=== PATIENT | female | born 1980 | race American Indian/Alaskan Native ===

== ENCOUNTER 2020-05-10 14:56 | Observation (INO) | payer OTHER, MEDICAID ==
[2020-05-10] MEDS ORDERED: DOCUSATE SODIUM 100 MG CAP PO PRN (15:57)
[2020-05-10] MEDS ORDERED: ACETAMINOPHEN 325 MG TAB PO PRN (15:57)
[2020-05-10] MEDS ORDERED: diphenhydrAMINE 25 MG CAP PO PRN (15:57)
[2020-05-10] MEDS ORDERED: BETAMET ACET/BETAMET NA PH 6 MG/ML INJ 5 ML MDV IM SCH (16:00)
[2020-05-10 16:26] LABS: Bilirubin,Urine NEG (Negative); Blood,Urine NEG (Negative); Color,Urine Yellow (Yellow); Mucus,Urine FEW /HPF; Protein,Urine <15 mg/dL mg/dL (Negative)
--- NOTE | 2020-05-10 17:52 | History and Physical Report ---
History of Present Illness Date of examination: 05/10/20 Date of admission: 05/10/20 15:57 Chief complaint: "My face hurts and is swollen" History of present illness: Pt is a 39 yo at 33w5d EGA who presents reporting facial swelling, frontal headache for the past day not relieved by Tylenol with Codeine, and nausea. She denies scotomata, RUQ pain, or epigastric pain. She reports positive movement and denies contractions, LOF, or vaginal bleeding. She has received care with [facility]'s fitness specialist. 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 She has no history of hypertension. 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) Family/Genetic History: diabetes, hypertension Social history: no significant social history - Obstetrical History Expected Date of Delivery: 06/23/20 Actual Gestation: 33 Week(s) 5 Day(s) : 6 Para: 5 Hx # Term Pregnancies: 5 Number of Living Children: 5 Medications and Allergies Allergies Allergy/AdvReac Type Severity Reaction Status Date / Time No Known Allergies Allergy Verified 05/10/20 15:42 Active Meds: Active Medications Acetaminophen (Acetaminophen 325 Mg Tab) 650 mg PO Q4H PRN PRN Reason: Pain MILD(1-3)/Fever >100.5/FELICIANO Betamethasone Acet/Betameth SodPhos (Betamet Acet/Betamet Na Ph 6 Mg/Ml Inj 5 Ml Mdv) 12 mg IM Q24H DILIA Stop: 05/11/20 16:01 Diphenhydramine HCl (Diphenhydramine 25 Mg Cap) 25 mg PO Q6H PRN PRN Reason: Itching Docusate Sodium (Docusate Sodium 100 Mg Cap) 100 mg PO Q12H PRN PRN Reason: Constipation Lactated Ringer's (Lactated Ringers) 1,000 mls @ 125 mls/hr IV DIRECT DILIA Multivitamins/Iron/Calcium ( Umm80-Dt Fumarate-Folic Acid Vit Tab) 1 each PO QDAY DILIA Review of Systems All systems: negative Cardiovascular: edema (facial) Respiratory: no shortness of breath Gastrointestinal: nausea, no vomiting Genitourinary: no vaginal bleeding, no leakage of fluid, no pelvic pain, no contractions Neurological: headaches, no double vision, no other (scotomata) - Vital Signs Vital signs: Vital Signs Pulse BP 93 H 144/87 05/10/20 15:30 05/10/20 15:30 Temp Pulse Resp BP Pulse Ox 98.5 F 82 20 126/62 97 05/10/20 16:12 05/10/20 17:20 05/10/20 16:12 05/10/20 17:20 05/10/20 16:30 - Physical Exam Uterus: Positive: enlarged (gravid) - Obstetrical FHR: category 1 Uterine Contraction Monitor Mode: External Uterine Contraction Pattern: Absent Results All other labs normal. Assessment and Plan A: 39 yo at 33w5d EGA Gestational hypertension, rule out preeclampsia Headache HSV-2 positive Obesity P: Admit to observation 24 hour urine protein, serum PIH labs Fioricet PRN Betamethasone x2 Closely monitor clinical status Dr. Huggins aware of patient
[2020-05-10] MEDS: BUTALB/ACETAMINOPHEN/CAFFEINE TAB PO PRN (18:59)
--- NOTE | 2020-05-10 22:43 | Event Note ---
Date: 05/10/20 Pt sleeping comfortably. States Fioricet relieved headache to 2/10, but the pain is returning. Continue current care, Fioricet PRN.
[2020-05-10 22:52] LABS: Basophils % (Auto) 0.2 % (0.0-1.8); Eosinophils % (Auto) 0.3 % (0.0-4.3); Hematocrit 33.1 % (30.3-42.9); Hemoglobin 10.9 gm/dl (10.1-14.3); Lymphocytes # (Auto) 0.8 K/mm3 (1.2-5.4); Lymphocytes % (Auto) 8.7 % (13.4-35.0); Mean Corpuscular HGB Conc 33 % (30-34); Mean Corpuscular Volume 86 fl (79-97); Monocytes # (Auto) 0.4 K/mm3 (0.0-0.8); Platelet Count 189 K/mm3 (140-440); Red Blood Count 3.86 M/mm3 (3.65-5.03); Red Cell Distribution Width 14.4 % (13.2-15.2)
[2020-05-10 23:05] LABS: Alanine Aminotransferase 84 units/L (7-56)
[2020-05-10 23:07] LABS: Alanine Aminotransferase 83 units/L (7-56); Albumin 3.1 g/dL (3.9-5); Blood Urea Nitrogen 5 mg/dL (7-17); Calcium 8.6 mg/dL (8.4-10.2); Hemolysis Index 0
[2020-05-10 23:08] LABS: BUN/Creatinine Ratio 8
[2020-05-10] MEDS: LACTATED RINGERS 1,000 ML IV SCH (23:30)
[2020-05-11] MEDS: BUTALB/ACETAMINOPHEN/CAFFEINE TAB PO PRN (06:08)
[2020-05-11] MEDS: LACTATED RINGERS 1,000 ML IV SCH (08:01)
[2020-05-11 10:00] LABS: Hematocrit 31.3 % (30.3-42.9); Mean Corpuscular HGB Conc 35 % (30-34); Mean Corpuscular Volume 84 fl (79-97); Platelet Count 198 K/mm3 (140-440); Red Blood Count 3.73 M/mm3 (3.65-5.03); Red Cell Distribution Width 13.9 % (13.2-15.2)
[2020-05-11] MEDS ORDERED: PRENATAL VIT27-FE FUMARATE-FOLIC ACID VIT TAB PO SCH (10:00)
[2020-05-11] MEDS ORDERED: ONDANSETRON 4 MG/2 ML INJ ONE (10:44)
[2020-05-11] MEDS ORDERED: ONDANSETRON 4 MG/2 ML INJ IV SCH (11:00)
[2020-05-11 11:56] LABS: Alanine Aminotransferase 82 units/L (7-56); Uric Acid 4.7 mg/dL (3.5-7.6)
[2020-05-11] MEDS ORDERED: FAMOTIDINE 20 MG/2 ML INJ IV SCH (16:00)
[2020-05-11] MEDS ORDERED: BICITRA ORAL LIQD 30ML PO ONE (16:00)
--- NOTE | 2020-05-11 18:07 | Progress Note ---
Assessment and Plan A: IUP at 33w6d Mild Preeclampsia Morbid Obesity P: Discharge patient after second dose of betamethasone Follow up in clinic on Thursday05/14/20 Subjective - Subjective Date of service: 05/11/20 Principal diagnosis: IUP at 33 wks, rule out preeclampsia Interval history: Pt without complaints now. No headache, blurred vision or RUQ pain. She has no other obstetric complaints. Patient reports: no new complaints Objective - Vital Signs Vital Signs: Vital Signs - 12hr 05/11/20 05/11/20 05/11/20 06:09 06:14 06:19 Temperature Pulse Rate 73 66 61 Respiratory Rate Blood Pressure Blood Pressure [Right] O2 Sat by Pulse 98 97 97 Oximetry 05/11/20 05/11/20 05/11/20 06:24 06:26 06:29 Temperature Pulse Rate 64 62 84 Respiratory Rate Blood Pressure 119/58 Blood Pressure [Right] O2 Sat by Pulse 98 98 Oximetry 05/11/20 05/11/20 05/11/20 06:39 06:44 06:49 Temperature Pulse Rate 91 H 70 67 Respiratory Rate Blood Pressure Blood Pressure [Right] O2 Sat by Pulse 98 98 98 Oximetry 05/11/20 05/11/20 05/11/20 06:54 06:59 07:04 Temperature Pulse Rate 71 63 65 Respiratory Rate Blood Pressure Blood Pressure [Right] O2 Sat by Pulse 98 98 97 Oximetry 05/11/20 05/11/20 05/11/20 07:09 07:12 07:14 Temperature Pulse Rate 63 64 77 Respiratory Rate Blood Pressure 132/84 Blood Pressure [Right] O2 Sat by Pulse 97 98 Oximetry 05/11/20 05/11/20 05/11/20 07:19 07:24 07:25 Temperature Pulse Rate 68 74 72 Respiratory Rate Blood Pressure 145/107 Blood Pressure [Right] O2 Sat by Pulse 99 98 Oximetry 05/11/20 05/11/20 05/11/20 07:29 07:34 07:39 Temperature Pulse Rate 88 75 74 Respiratory Rate Blood Pressure Blood Pressure [Right] O2 Sat by Pulse 97 98 97 Oximetry 05/11/20 05/11/20 05/11/20 07:42 07:44 07:49 Temperature Pulse Rate 75 83 80 Respiratory Rate Blood Pressure 132/79 Blood Pressure [Right] O2 Sat by Pulse 97 96 Oximetry 05/11/20 05/11/20 05/11/20 07:54 07:58 07:59 Temperature Pulse Rate 77 74 83 Respiratory Rate Blood Pressure 148/81 Blood Pressure [Right] O2 Sat by Pulse 97 98 Oximetry 05/11/20 05/11/20 05/11/20 08:04 08:09 08:14 Temperature Pulse Rate 74 74 68 Respiratory Rate Blood Pressure Blood Pressure [Right] O2 Sat by Pulse 98 97 97 Oximetry 05/11/20 05/11/20 05/11/20 08:19 08:24 08:29 Temperature Pulse Rate 73 67 76 Respiratory Rate Blood Pressure Blood Pressure [Right] O2 Sat by Pulse 98 98 98 Oximetry 05/11/20 05/11/20 05/11/20 08:34 08:35 08:39 Temperature 98.7 F Pulse Rate 71 69 Respiratory Rate Blood Pressure Blood Pressure [Right] O2 Sat by Pulse 97 97 Oximetry 05/11/20 05/11/20 05/11/20 08:44 08:49 08:54 Temperature Pulse Rate 76 78 79 Respiratory Rate Blood Pressure Blood Pressure [Right] O2 Sat by Pulse 96 97 96 Oximetry 05/11/20 05/11/20 05/11/20 08:59 09:00 09:03 Temperature Pulse Rate 82 76 77 Respiratory Rate Blood Pressure 139/89 Blood Pressure [Right] O2 Sat by Pulse 95 93 Oximetry 05/11/20 05/11/20 05/11/20 09:04 09:05 09:09 Temperature Pulse Rate 69 88 79 Respiratory Rate Blood Pressure Blood Pressure [Right] O2 Sat by Pulse 97 94 97 Oximetry 05/11/20 05/11/20 05/11/20 09:14 09:15 09:19 Temperature Pulse Rate 72 68 82 Respiratory Rate Blood Pressure Blood Pressure [Right] O2 Sat by Pulse 96 94 97 Oximetry 05/11/20 05/11/20 05/11/20 09:53 09:58 10:03 Temperature Pulse Rate 81 89 94 H Respiratory Rate Blood Pressure 164/100 Blood Pressure [Right] O2 Sat by Pulse 97 98 99 Oximetry 05/11/20 05/11/20 05/11/20 10:08 10:13 10:18 Temperature Pulse Rate 82 70 86 Respiratory Rate Blood Pressure Blood Pressure [Right] O2 Sat by Pulse 98 99 99 Oximetry 05/11/20 05/11/20 05/11/20 10:23 10:28 10:33 Temperature Pulse Rate 83 81 80 Respiratory Rate Blood Pressure Blood Pressure [Right] O2 Sat by Pulse 98 98 97 Oximetry 05/11/20 05/11/20 05/11/20 10:38 10:43 10:48 Temperature Pulse Rate 81 72 77 Respiratory Rate Blood Pressure Blood Pressure [Right] O2 Sat by Pulse 98 98 97 Oximetry 05/11/20 05/11/20 05/11/20 10:53 10:57 10:58 Temperature Pulse Rate 78 76 70 Respiratory Rate Blood Pressure Blood Pressure [Right] O2 Sat by Pulse 97 93 98 Oximetry 05/11/20 05/11/20 05/11/20 11:02 11:03 11:08 Temperature 98.1 F Pulse Rate 67 68 Respiratory Rate Blood Pressure 110/56 Blood Pressure [Right] O2 Sat by Pulse 97 96 Oximetry 05/11/20 05/11/20 05/11/20 11:13 11:18 11:23 Temperature Pulse Rate 69 70 74 Respiratory Rate Blood Pressure Blood Pressure [Right] O2 Sat by Pulse 94 94 95 Oximetry 05/11/20 05/11/20 05/11/20 11:24 11:28 11:30 Temperature Pulse Rate 68 67 62 Respiratory Rate Blood Pressure Blood Pressure [Right] O2 Sat by Pulse 93 93 94 Oximetry 05/11/20 05/11/20 05/11/20 11:33 11:38 11:43 Temperature Pulse Rate 67 63 80 Respiratory Rate Blood Pressure Blood Pressure [Right] O2 Sat by Pulse 98 99 99 Oximetry 05/11/20 05/11/20 05/11/20 11:44 12:01 12:03 Temperature Pulse Rate 86 99 H 70 Respiratory Rate Blood Pressure 138/82 Blood Pressure [Right] O2 Sat by Pulse 90 97 Oximetry 05/11/20 05/11/20 05/11/20 12:06 12:11 12:16 Temperature Pulse Rate 71 69 73 Respiratory Rate Blood Pressure Blood Pressure [Right] O2 Sat by Pulse 99 98 97 Oximetry 05/11/20 05/11/20 05/11/20 12:21 12:26 12:31 Temperature Pulse Rate 65 72 69 Respiratory Rate Blood Pressure Blood Pressure [Right] O2 Sat by Pulse 95 97 98 Oximetry 05/11/20 05/11/20 05/11/20 12:35 12:36 12:41 Temperature 97.5 F L Pulse Rate 70 70 69 Respiratory 20 Rate Blood Pressure 133/84 Blood Pressure 133/84 [Right] O2 Sat by Pulse 99 99 100 Oximetry 05/11/20 05/11/20 05/11/20 12:46 12:51 12:56 Temperature Pulse Rate 67 65 63 Respiratory Rate Blood Pressure Blood Pressure [Right] O2 Sat by Pulse 97 100 98 Oximetry 05/11/20 05/11/20 05/11/20 13:01 13:03 13:06 Temperature Pulse Rate 77 68 60 Respiratory Rate Blood Pressure 145/80 Blood Pressure [Right] O2 Sat by Pulse 98 100 Oximetry 05/11/20 05/11/20 05/11/20 13:11 13:16 13:21 Temperature Pulse Rate 61 64 64 Respiratory Rate Blood Pressure Blood Pressure [Right] O2 Sat by Pulse 97 98 97 Oximetry 05/11/20 05/11/20 05/11/20 13:26 13:31 13:36 Temperature Pulse Rate 64 61 63 Respiratory Rate Blood Pressure Blood Pressure [Right] O2 Sat by Pulse 95 97 97 Oximetry 05/11/20 05/11/20 05/11/20 13:41 13:46 13:51 Temperature Pulse Rate 65 65 82 Respiratory Rate Blood Pressure Blood Pressure [Right] O2 Sat by Pulse 98 97 97 Oximetry 05/11/20 05/11/20 05/11/20 13:54 13:56 14:00 Temperature Pulse Rate 83 75 81 Respiratory Rate Blood Pressure Blood Pressure [Right] O2 Sat by Pulse 94 98 92 Oximetry 05/11/20 05/11/20 05/11/20 14:01 14:12 14:17 Temperature Pulse Rate 89 78 72 Respiratory Rate Blood Pressure Blood Pressure [Right] O2 Sat by Pulse 97 98 99 Oximetry 05/11/20 05/11/20 05/11/20 14:22 14:27 14:32 Temperature Pulse Rate 71 76 77 Respiratory Rate Blood Pressure Blood Pressure [Right] O2 Sat by Pulse 98 97 96 Oximetry 05/11/20 05/11/20 05/11/20 14:37 14:42 14:47 Temperature Pulse Rate 76 72 79 Respiratory Rate Blood Pressure Blood Pressure [Right] O2 Sat by Pulse 97 99 97 Oximetry 05/11/20 05/11/20 05/11/20 14:52 14:57 15:02 Temperature Pulse Rate 80 74 79 Respiratory Rate Blood Pressure Blood Pressure [Right] O2 Sat by Pulse 98 98 97 Oximetry 05/11/20 05/11/20 05/11/20 15:03 15:07 15:23 Temperature Pulse Rate 68 86 98 H Respiratory Rate Blood Pressure 141/78 Blood Pressure [Right] O2 Sat by Pulse 99 100 Oximetry 05/11/20 05/11/20 05/11/20 15:28 15:33 15:38 Temperature Pulse Rate 87 79 77 Respiratory Rate Blood Pressure Blood Pressure [Right] O2 Sat by Pulse 97 96 97 Oximetry 05/11/20 05/11/20 05/11/20 15:43 15:45 15:48 Temperature Pulse Rate 72 84 Respiratory Rate Blood Pressure Blood Pressure [Right] O2 Sat by Pulse 98 90 98 Oximetry 05/11/20 05/11/20 05/11/20 15:53 15:58 16:03 Temperature 97.9 F Pulse Rate 75 71 70 Respiratory 20 Rate Blood Pressure 119/71 Blood Pressure 119/71 [Right] O2 Sat by Pulse 99 100 99 Oximetry 05/11/20 05/11/20 05/11/20 16:08 16:13 16:18 Temperature Pulse Rate 77 74 70 Respiratory Rate Blood Pressure Blood Pressure [Right] O2 Sat by Pulse 98 98 98 Oximetry 05/11/20 05/11/20 05/11/20 16:23 16:28 16:33 Temperature Pulse Rate 73 76 82 Respiratory Rate Blood Pressure Blood Pressure [Right] O2 Sat by Pulse 98 98 99 Oximetry 05/11/20 05/11/20 05/11/20 16:38 16:43 16:48 Temperature Pulse Rate 73 76 67 Respiratory Rate Blood Pressure Blood Pressure [Right] O2 Sat by Pulse 99 98 98 Oximetry 05/11/20 05/11/20 05/11/20 16:53 16:58 17:03 Temperature Pulse Rate 68 71 75 Respiratory Rate Blood Pressure Blood Pressure [Right] O2 Sat by Pulse 97 98 98 Oximetry 05/11/20 05/11/20 05/11/20 17:04 17:08 17:13 Temperature Pulse Rate 69 77 75 Respiratory Rate Blood Pressure 132/64 Blood Pressure [Right] O2 Sat by Pulse 99 98 Oximetry 05/11/20 05/11/20 05/11/20 17:18 17:23 17:28 Temperature Pulse Rate 70 77 79 Respiratory Rate Blood Pressure Blood Pressure [Right] O2 Sat by Pulse 98 98 97 Oximetry 05/11/20 05/11/20 05/11/20 17:33 17:38 17:43 Temperature Pulse Rate 73 77 74 Respiratory Rate Blood Pressure Blood Pressure [Right] O2 Sat by Pulse 96 96 97 Oximetry 05/11/20 05/11/20 05/11/20 17:48 17:53 17:58 Temperature Pulse Rate 90 79 71 Respiratory Rate Blood Pressure Blood Pressure [Right] O2 Sat by Pulse 99 98 97 Oximetry 05/11/20 05/11/20 18:03 18:04 Temperature Pulse Rate 71 68 Respiratory Rate Blood Pressure 121/60 Blood Pressure [Right] O2 Sat by Pulse 99 Oximetry - Exam Breasts: deferred Abdomen: Present: soft (obese, gravid ) FHR: auscultation normal Uterine Contraction Monitor Mode: External Uterine Contraction Pattern: Absent Uterine Tone Measurement Phase: Resting Extremities: edema (trace) - Labs Labs: Abnormal Labs 05/10/20 05/10/20 05/10/20 15:57 21:54 21:54 MCHC Lymph % (Auto) 8.7 L Lymph # (Auto) 0.8 L Seg Neutrophils % 85.8 H Sodium Potassium Carbon Dioxide BUN Glucose AST 58 H ALT 84 H Lactate Dehydrogenase 191 H Albumin Ur Total Protein 24 Hr 300.00 H Urine Total Protein 15 H 05/10/20 05/11/20 05/11/20 21:54 09:16 09:16 MCHC 35 H Lymph % (Auto) Lymph # (Auto) Seg Neutrophils % Sodium 131 L Potassium 3.5 L Carbon Dioxide 21 L BUN 5 L Glucose 116 H AST 58 H 55 H ALT 83 H 82 H Lactate Dehydrogenase 203 H Albumin 3.1 L Ur Total Protein 24 Hr Urine Total Protein Laboratory Results - last 24 hr 05/10/20 05/10/20 05/10/20 15:57 21:54 21:54 WBC 8.8 RBC 3.86 Hgb 10.9 Hct 33.1 MCV 86 MCH 28 MCHC 33 RDW 14.4 Plt Count 189 Lymph % (Auto) 8.7 L [place] % (Auto) 5.0 Eos % (Auto) 0.3 Baso % (Auto) 0.2 Lymph # (Auto) 0.8 L [place] # (Auto) 0.4 Eos # (Auto) 0.0 Baso # (Auto) 0.0 Seg Neutrophils % 85.8 H Seg Neutrophils # 7.6 Sodium Potassium Chloride Carbon Dioxide Anion Gap BUN Creatinine 0.6 Estimated GFR > 60 BUN/Creatinine Ratio Glucose Uric Acid Calcium Total Bilirubin AST 58 H ALT 84 H Alkaline Phosphatase Lactate Dehydrogenase 191 H Total Protein Albumin Albumin/Globulin Ratio Urine Total Volume 2000 Ur Total Protein 24 Hr 300.00 H Urine Total Protein 15 H Syphilis IgG Antibody Blood Type Antibody Screen 05/10/20 05/10/20 05/10/20 21:54 21:54 21:54 WBC RBC Hgb Hct MCV MCH MCHC RDW Plt Count Lymph % (Auto) [place] % (Auto) Eos % (Auto) Baso % (Auto) Lymph # (Auto) [place] # (Auto) Eos # (Auto) Baso # (Auto) Seg Neutrophils % Seg Neutrophils # Sodium 131 L Potassium 3.5 L Chloride 98.9 Carbon Dioxide 21 L Anion Gap 15 BUN 5 L Creatinine 0.6 Estimated GFR > 60 BUN/Creatinine Ratio 8 Glucose 116 H Uric Acid Calcium 8.6 Total Bilirubin 0.40 AST 58 H ALT 83 H Alkaline Phosphatase 111 Lactate Dehydrogenase Total Protein 7.7 Albumin 3.1 L Albumin/Globulin Ratio 0.7 Urine Total Volume Ur Total Protein 24 Hr Urine Total Protein Syphilis IgG Antibody Nonreactive Blood Type O POSITIVE Antibody Screen Negative 05/11/20 05/11/20 09:16 09:16 WBC 9.1 RBC 3.73 Hgb 11.0 Hct 31.3 MCV 84 MCH 30 MCHC 35 H RDW 13.9 Plt Count 198 Lymph % (Auto) [place] % (Auto) Eos % (Auto) Baso % (Auto) Lymph # (Auto) [place] # (Auto) Eos # (Auto) Baso # (Auto) Seg Neutrophils % Seg Neutrophils # Sodium Potassium Chloride Carbon Dioxide Anion Gap BUN Creatinine 0.6 Estimated GFR > 60 BUN/Creatinine Ratio Glucose Uric Acid 4.7 Calcium Total Bilirubin AST 55 H ALT 82 H Alkaline Phosphatase Lactate Dehydrogenase 203 H Total Protein Albumin Albumin/Globulin Ratio Urine Total Volume Ur Total Protein 24 Hr Urine Total Protein Syphilis IgG Antibody Blood Type Antibody Screen
--- NOTE | 2020-05-11 18:11 | Short Stay Summary ---
Short Stay Documentation Date of service: 05/11/20 - History H&P: dictated Social history: no significant social history - Allergies and Medications Current Medications: Allergies No Known Allergies Allergy (Verified 05/10/20 15:42) Home Medications Medication Instructions Recorded Confirmed Last Taken Type Acetaminophen/Codeine [Tylenol 1 tab PO Q6H PRN 05/10/20 05/10/20 05/10/20 10:00 History /Codeine # 3 tab] [facility] Tablet 1 tab PO DAILY 05/10/20 05/10/20 05/10/20 10:00 History Omeprazole Magnesium [PriLOSEC Otc] 20 mg PO QDAY 05/10/20 05/10/20 05/09/20 09:00 History Active Medications Acetaminophen (Acetaminophen 325 Mg Tab) 650 mg PO Q4H PRN PRN Reason: Pain MILD(1-3)/Fever >100.5/FELICIANO Acetaminophen/Butalbital/Caffeine (Butalb/Acetaminophen/Caffeine Tab) 1 tab PO Q4H PRN PRN Reason: Headache Last Admin: 05/11/20 06:08 Dose: 1 tab Documented by: Diphenhydramine HCl (Diphenhydramine 25 Mg Cap) 25 mg PO Q6H PRN PRN Reason: Itching Docusate Sodium (Docusate Sodium 100 Mg Cap) 100 mg PO Q12H PRN PRN Reason: Constipation Famotidine (Famotidine 20 Mg/2 Ml Inj) 20 mg IV BID [facility], 1928[facility]1983 Last Admin: 05/11/20 15:49 Dose: 20 mg Documented by: Lactated Ringer's (Lactated Ringers) 1,000 mls @ 125 mls/hr IV DIRECT [facility]1983 Last Admin: 05/11/20 08:01 Dose: 125 mls/hr Documented by: Multivitamins/Iron/Calcium ( Fal46-Bw Fumarate-Folic Acid Vit Tab) 1 each PO QDAY [facility]1983 Last Admin: 05/11/20 10:00 Dose: Not Given Documented by: - Physical exam Breasts: deferred - Hospital course Hospital course: Pt was admitted at 33 wks with facial swelling and a 24 hour urine was collected yielding 300 mg of protein. She was diagnosed with mild preeclampsia and plan to deliver by 37 wks. She has an appt scheduled on Thu05/14/20. - Disposition Condition at discharge: Stable Disposition: DC-01 TO HOME OR SELFCARE - Discharge Diagnoses (1) Mild preeclampsia Status: Acute (2) Morbid obesity Status: Acute (3) AMA (advanced maternal age) multigravida 35+ Status: Acute Qualifiers: Trimester: third trimester Qualified Code(s): O09.523 - Supervision of elderly multigravida, third trimester Short Stay Discharge Plan Activity: no restrictions Weight Bearing Status: Full Weight Bearing Follow up with: HUSSAIN OHARA MD [Staff Physician] - 05/14/20 (Please follow up at scheduled appt )
[2020-05-11 19:04] VITALS: BP 124/77
[2020-05-11] MEDS ORDERED: BETAMET ACET/BETAMET NA PH 6 MG/ML INJ 5 ML MDV IM ONE (19:15)
== END 2020-05-11 19:51 | disposition home or self-care (01) ==
LOC: TRG 14:56 → APU 14:57 → TRG 15:57 → LD 21:10
PROVIDERS: ADMIT Obstetrics & Gynecology; ATTEND Obstetrics & Gynecology
DX: O14.03 Mild to moderate pre-eclampsia, third trimester (principal); Z20.828 Contact with and (suspected) exposure to other viral communicable diseases; O13.3 Gestational [pregnancy-induced] hypertension without significant proteinuria, third trimester; O26.893 Other specified pregnancy related conditions, third trimester; R51.9 Headache, unspecified; E66.9 Obesity, unspecified; O09.523 Supervision of elderly multigravida, third trimester; Z98.890 Other specified postprocedural states; Z3A.33 33 weeks gestation of pregnancy
CPT/HCPCS: 36415; 80053; 81001; 82565; 83615; 84156; 84450; 84460; 84550; 85025; 85027; 86592; 86850; 86900; 86901; 96361; 96372; 96374; G0378; J0702; J2405; J7120; U0003

== ENCOUNTER 2020-05-21 12:29 | Outpatient (CLI) | payer OTHER, MEDICAID ==
[2020-05-21] MEDS ORDERED: LACTATED RINGERS 1,000 ML IV SCH (13:00)
[2020-05-21 13:09] VITALS: BP 135/67
[2020-05-21 13:16] LABS: Bilirubin,Urine NEG (Negative); Blood,Urine NEG (Negative); Color,Urine Yellow (Yellow); Mucus,Urine FEW /HPF; Protein,Urine <15 mg/dL mg/dL (Negative); Urobilinogen,Urine < 2.0 mg/dL (<2.0)
== END 2020-05-21 13:27 | disposition home or self-care (01) ==
LOC: TRG 12:29 → APU 12:31 → TRG 13:27
PROVIDERS: ATTEND Obstetrics & Gynecology
DX: O09.93 Supervision of high risk pregnancy, unspecified, third trimester (principal); Z3A.36 36 weeks gestation of pregnancy
CPT/HCPCS: 59025; 81001

== ENCOUNTER 2020-05-23 17:01 | Inpatient (IN) | payer OTHER, MEDICAID ==
[2020-05-23 17:52] LABS: Bilirubin,Urine NEG (Negative); Blood,Urine NEG (Negative); Color,Urine Straw (Yellow); Protein,Urine <15 mg/dL mg/dL (Negative); Urobilinogen,Urine < 2.0 mg/dL (<2.0)
[2020-05-23 18:48] LABS: Alanine Aminotransferase 28 units/L (7-56)
[2020-05-23] MEDS ORDERED: MAGNESIUM SULFATE 4 GM/100 ML BAG IV ONE (18:51)
[2020-05-23] MEDS ORDERED: hydrALAZINE 20 MG/1 ML INJ IV PRN (18:51)
[2020-05-23] MEDS ORDERED: MINERAL OIL 30 ML ORAL LIQD PO PRN (19:01)
[2020-05-23] MEDS ORDERED: TERBUTALINE 1 MG/1 ML INJ SUB-Q PRN (19:01)
[2020-05-23] MEDS ORDERED: METHYLERGONOVINE MALEATE 0.2 MG/ML VIAL IM PRN (19:01)
[2020-05-23] MEDS ORDERED: NALOXONE 0.4 MG/1 ML INJ IV PRN (19:01)
[2020-05-23] MEDS ORDERED: PROMETHAZINE 25 MG TAB PO PRN (19:01)
[2020-05-23] MEDS ORDERED: ePHEDrine SULFATE 50 MG/1 ML INJ IV PRN (19:01)
[2020-05-23] MEDS ORDERED: BUTORPHANOL 2 MG/1 ML INJ IV PRN (19:01)
[2020-05-23] MEDS ORDERED: LIDOCAINE (2%) 20 MG/1 ML VIAL 20 ML MDV INFILTRATI ONE (19:01)
[2020-05-23] MEDS ORDERED: CARBOPROST TROMETHAMINE 250 MCG/1 ML INJ IM PRN (19:01)
[2020-05-23] MEDS ORDERED: fentaNYL 100 MCG/2 ML INJ IV PRN (19:01)
[2020-05-23 19:10] LABS: Hematocrit 35.3 % (30.3-42.9); Hemoglobin 11.8 gm/dl (10.1-14.3); Mean Corpuscular HGB Conc 33 % (30-34); Mean Corpuscular Volume 85 fl (79-97); Platelet Count 221 K/mm3 (140-440); Red Blood Count 4.17 M/mm3 (3.65-5.03); Red Cell Distribution Width 14.5 % (13.2-15.2)
--- NOTE | 2020-05-23 19:11 | History and Physical Report ---
History of Present Illness Date of examination: 05/23/20 Chief complaint: Persistent Headache, hx of PreEclampsia History of present illness: 39yo with history of PreEclampsia, presents from [facility] with recommendation for delivery. Patient presented for followup evaluation and was found to have PreEclampsia with SF-headache not relieved by tylenol. She denies persistent changes to vision or right upper quadrant pain. She denies contractions, leakage of fluid or vaginal bleeding. No additional complaints. 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 Family/Genetic History: none Social history: no significant social history - Obstetrical History Expected Date of Delivery: 06/23/20 Actual Gestation: 35 Week(s) 4 Day(s) : 6 Para: 5 Hx # Term Pregnancies: 5 Number of Living Children: 5 Medications and Allergies Allergies Allergy/AdvReac Type Severity Reaction Status Date / Time No Known Allergies Allergy Verified 05/10/20 15:42 Home Medications Medication Instructions Recorded Confirmed Last Taken Type Acetaminophen/Codeine [Tylenol 1 tab PO Q6H PRN 05/10/20 05/10/20 05/10/20 10:00 History /Codeine # 3 tab] [facility] Tablet 1 tab PO DAILY 05/10/20 05/10/20 05/10/20 10:00 History Omeprazole Magnesium [PriLOSEC Otc] 20 mg PO QDAY 05/10/20 05/10/20 05/09/20 09:00 History Active Meds: Active Medications Hydralazine HCl (Hydralazine 20 Mg/1 Ml Inj) 5 mg IV Q30MIN PRN PRN Reason: Hypertension Lactated Ringer's (Lactated Ringers) 1,000 mls @ 125 mls/hr IV DIRECT DILIA Magnesium Sulfate (Magnesium Sulfate 40gm/1000ml) 40 gm in 1,000 mls @ 50 mls/hr IV DIRECT DILIA Review of Systems Constitutional: no chills Cardiovascular: no chest pain, no shortness of breath, no dyspnea on exertion Respiratory: no cough Genitourinary: no vaginal bleeding, no genital sores, no contractions Neurological: headaches - Vital Signs Vital signs: Vital Signs Pulse BP 75 137/90 05/23/20 17:43 05/23/20 17:43 Temp Pulse Resp BP Pulse Ox 98.6 F 72 20 129/77 99 05/23/20 17:44 05/23/20 19:10 05/23/20 17:44 05/23/20 18:59 05/23/20 19:10 - Physical Exam Cardiovascular: Regular rate Lungs: Positive: Clear to auscultation Abdomen: Positive: normal appearance, other (gravid) Genitourinary (Female): Positive: normal external genitalia Cervix: Negative: lesion, ulceration Uterus: Positive: other (gravid) Extremities: Positive: normal - Obstetrical FHR: category 1 Uterine Contraction Monitor Mode: External Cervical Dilatation: 0 Cervical Effacement Percentage: 0 Uterine Contraction Pattern: Absent Results Result Diagrams: 05/23/20 Unknown 05/23/20 Unknown Abnormal lab results 05/23/20 Range/Units Unknown Creatinine 0.5 L (0.6-1.2) mg/dL AST < 5 L (5-40) units/L All other labs normal. Ultrasound: report reviewed, other ([facility] at [facility] 12/30 on chart) Assessment and Plan IOL, Anticipate Vaginal Delivery - Patient Problems (1) Severe preeclampsia Current Visit: Yes Status: Acute Plan to address problem: persistent FELICIANO -Mag for seizure prophylaxis, continue for 24 hours PP -Tylenol prn FELICIANO -proceed with IOL -Cervidil PV (2) AMA (advanced maternal age) multigravida 35+ Current Visit: No Status: Acute Qualifiers: Trimester: third trimester Qualified Code(s): O09.523 - Supervision of elderly multigravida, third trimester (3) Morbid obesity Current Visit: No Status: Acute (4) Encounter for induction of labor Current Visit: Yes Status: Acute Plan to address problem: Cervix evaluated -Cervidil PV PNC: per [facility] -labs on chart O+/Rub I/hep B neg/RPRNR/HIV neg/HSV positive
[2020-05-23 20:20] LABS: Uric Acid 4.5 mg/dL (3.5-7.6)
[2020-05-23] MEDS: LACTATED RINGERS 1,000 ML IV SCH (20:30)
[2020-05-23] MEDS ORDERED: DINOPROSTONE 10 MG VAG SUPP VG ONE (20:30)
[2020-05-23] MEDS: ACETAMINOPHEN 325 MG TAB PO PRN (20:38)
[2020-05-23] MEDS: MAGNESIUM SULFATE 40GM/1000ML 40 GM/1,000 ML BAG IV SCH (20:59)
[2020-05-24] MEDS: ACETAMINOPHEN 325 MG TAB PO PRN (00:41)
[2020-05-24] MEDS: LACTATED RINGERS 1,000 ML IV SCH ×2 (08:41→22:05)
--- NOTE | 2020-05-24 09:18 | Progress Note ---
Assessment and Plan - Patient Problems (1) Encounter for induction of labor Current Visit: Yes Status: Acute Plan to address problem: Cervidil removed at 0850. Initiate Cytotec q4hr. Notify NICU S/p betamethasone x2 doses, on 05/11 and 05/12. (2) Severe preeclampsia Current Visit: Yes Status: Acute Plan to address problem: Fioricet for FELICIANO. Continue mag sulfate for 24 hours . Rescue anti- hypertensives as indicated. MFLakesha and Dr. Huggins aware of patient. (3) Morbid obesity Current Visit: No Status: Acute Subjective - Subjective Date of service: 05/24/20 Principal diagnosis: Preeclampsia with severe features, IUP at 35w4d Interval history: HD of IOL for pree with severe features at 35w4d EGA. Receiving mag sulfate for seizure prophylaxis, s/p Cervidil overnight. No use of antihypertensives overnight. Patient reports: movement normal, contractions, other (headache), no loss of fluid, no vaginal bleeding Objective - Vital Signs Vital Signs: Vital Signs - 12hr 05/23/20 05/23/20 05/23/20 21:21 21:26 21:29 Temperature Pulse Rate 77 78 72 Respiratory Rate Blood Pressure 138/78 O2 Sat by Pulse 98 98 Oximetry 05/23/20 05/23/20 05/23/20 21:31 21:36 21:41 Temperature Pulse Rate 76 77 77 Respiratory Rate Blood Pressure O2 Sat by Pulse 98 98 99 Oximetry 05/23/20 05/23/20 05/23/20 21:43 21:46 21:51 Temperature Pulse Rate 79 69 76 Respiratory Rate Blood Pressure 139/88 O2 Sat by Pulse 98 97 Oximetry 05/23/20 05/23/20 05/23/20 21:56 21:59 22:01 Temperature Pulse Rate 74 72 78 Respiratory Rate Blood Pressure 122/80 O2 Sat by Pulse 98 97 Oximetry 05/23/20 05/23/20 05/23/20 22:06 22:11 22:13 Temperature Pulse Rate 75 83 64 Respiratory Rate Blood Pressure 133/73 O2 Sat by Pulse 98 99 Oximetry 05/23/20 05/23/20 05/23/20 22:16 22:21 22:26 Temperature Pulse Rate 75 73 69 Respiratory Rate Blood Pressure O2 Sat by Pulse 98 98 98 Oximetry 05/23/20 05/23/20 05/23/20 22:28 22:31 22:36 Temperature Pulse Rate 72 69 74 Respiratory Rate Blood Pressure 126/67 O2 Sat by Pulse 98 97 Oximetry 05/23/20 05/23/20 05/23/20 22:41 22:46 22:51 Temperature Pulse Rate 71 73 79 Respiratory Rate Blood Pressure O2 Sat by Pulse 99 98 96 Oximetry 05/23/20 05/23/20 05/23/20 22:56 23:01 23:06 Temperature Pulse Rate 75 83 77 Respiratory Rate Blood Pressure O2 Sat by Pulse 98 99 98 Oximetry 05/23/20 05/23/20 05/23/20 23:11 23:12 23:16 Temperature Pulse Rate 74 67 70 Respiratory Rate Blood Pressure 130/75 O2 Sat by Pulse 97 99 Oximetry 05/23/20 05/23/20 05/23/20 23:21 23:26 23:31 Temperature Pulse Rate 67 70 73 Respiratory Rate Blood Pressure O2 Sat by Pulse 98 98 98 Oximetry 05/23/20 05/23/20 05/23/20 23:36 23:41 23:42 Temperature Pulse Rate 69 74 65 Respiratory Rate Blood Pressure 125/80 O2 Sat by Pulse 98 96 Oximetry 05/23/20 05/23/20 05/23/20 23:46 23:51 23:56 Temperature Pulse Rate 74 71 70 Respiratory Rate Blood Pressure O2 Sat by Pulse 98 98 98 Oximetry 05/24/20 05/24/20 05/24/20 00:00 00:01 00:06 Temperature 98.2 F Pulse Rate 69 72 Respiratory 18 Rate Blood Pressure O2 Sat by Pulse 99 98 Oximetry 05/24/20 05/24/20 05/24/20 00:11 00:12 00:16 Temperature Pulse Rate 70 71 75 Respiratory Rate Blood Pressure 131/73 O2 Sat by Pulse 97 98 Oximetry 05/24/20 05/24/20 05/24/20 00:21 00:26 00:31 Temperature Pulse Rate 71 78 79 Respiratory Rate Blood Pressure O2 Sat by Pulse 99 98 99 Oximetry 05/24/20 05/24/20 05/24/20 00:36 00:41 00:43 Temperature Pulse Rate 79 79 72 Respiratory 18 Rate Blood Pressure 136/81 O2 Sat by Pulse 98 99 Oximetry 05/24/20 05/24/20 05/24/20 00:46 00:51 00:56 Temperature Pulse Rate 82 76 99 H Respiratory Rate Blood Pressure O2 Sat by Pulse 99 99 98 Oximetry 05/24/20 05/24/20 05/24/20 01:01 01:06 01:11 Temperature Pulse Rate 77 71 79 Respiratory Rate Blood Pressure O2 Sat by Pulse 99 99 99 Oximetry 05/24/20 05/24/20 05/24/20 01:12 01:16 01:21 Temperature Pulse Rate 72 78 75 Respiratory Rate Blood Pressure 136/93 O2 Sat by Pulse 99 98 Oximetry 05/24/20 05/24/20 05/24/20 01:26 01:31 01:36 Temperature Pulse Rate 79 76 71 Respiratory Rate Blood Pressure O2 Sat by Pulse 99 98 100 Oximetry 05/24/20 05/24/20 05/24/20 01:41 01:42 01:46 Temperature Pulse Rate 72 71 71 Respiratory Rate Blood Pressure 133/82 O2 Sat by Pulse 99 98 Oximetry 05/24/20 05/24/20 05/24/20 01:51 01:56 02:01 Temperature Pulse Rate 74 70 74 Respiratory Rate Blood Pressure O2 Sat by Pulse 98 98 99 Oximetry 05/24/20 05/24/20 05/24/20 02:06 02:11 02:12 Temperature Pulse Rate 89 91 H 69 Respiratory Rate Blood Pressure 140/85 O2 Sat by Pulse 97 99 Oximetry 05/24/20 05/24/20 05/24/20 02:16 02:21 02:26 Temperature Pulse Rate 76 74 75 Respiratory Rate Blood Pressure O2 Sat by Pulse 98 97 98 Oximetry 05/24/20 05/24/20 05/24/20 02:31 02:36 02:41 Temperature Pulse Rate 72 73 72 Respiratory Rate Blood Pressure O2 Sat by Pulse 99 98 98 Oximetry 05/24/20 05/24/20 05/24/20 02:42 02:46 02:51 Temperature Pulse Rate 70 72 73 Respiratory Rate Blood Pressure 132/71 O2 Sat by Pulse 99 98 Oximetry 05/24/20 05/24/20 05/24/20 02:56 03:01 03:06 Temperature Pulse Rate 73 73 82 Respiratory Rate Blood Pressure O2 Sat by Pulse 98 99 98 Oximetry 05/24/20 05/24/20 05/24/20 03:07 03:11 03:12 Temperature Pulse Rate 54 L 79 78 Respiratory Rate Blood Pressure 146/79 O2 Sat by Pulse 88 99 Oximetry 05/24/20 05/24/20 05/24/20 03:16 03:21 03:26 Temperature Pulse Rate 77 82 76 Respiratory Rate Blood Pressure O2 Sat by Pulse 99 99 99 Oximetry 05/24/20 05/24/20 05/24/20 03:31 03:36 03:41 Temperature Pulse Rate 73 80 78 Respiratory Rate Blood Pressure O2 Sat by Pulse 99 99 99 Oximetry 05/24/20 05/24/20 05/24/20 03:42 03:46 03:51 Temperature Pulse Rate 76 78 76 Respiratory Rate Blood Pressure 138/77 O2 Sat by Pulse 99 98 Oximetry 05/24/20 05/24/20 05/24/20 03:56 04:00 04:01 Temperature 97.8 F Pulse Rate 76 75 Respiratory 18 Rate Blood Pressure O2 Sat by Pulse 98 96 Oximetry 05/24/20 05/24/20 05/24/20 04:06 04:11 04:12 Temperature Pulse Rate 76 75 75 Respiratory Rate Blood Pressure 143/76 O2 Sat by Pulse 97 97 Oximetry 05/24/20 05/24/20 05/24/20 04:16 04:21 04:26 Temperature Pulse Rate 75 77 77 Respiratory Rate Blood Pressure O2 Sat by Pulse 98 97 98 Oximetry 05/24/20 05/24/20 05/24/20 04:31 04:33 04:36 Temperature Pulse Rate 76 41 L 82 Respiratory Rate Blood Pressure O2 Sat by Pulse 98 83 L 99 Oximetry 05/24/20 05/24/20 05/24/20 04:41 04:43 04:46 Temperature Pulse Rate 70 74 75 Respiratory Rate Blood Pressure 135/73 O2 Sat by Pulse 98 98 Oximetry 05/24/20 05/24/20 05/24/20 04:51 04:56 05:01 Temperature Pulse Rate 81 75 73 Respiratory Rate Blood Pressure O2 Sat by Pulse 97 97 97 Oximetry 05/24/20 05/24/20 05/24/20 05:06 05:11 05:13 Temperature Pulse Rate 75 73 73 Respiratory Rate Blood Pressure 137/72 O2 Sat by Pulse 98 98 Oximetry 05/24/20 05/24/20 05/24/20 05:16 05:21 05:26 Temperature Pulse Rate 73 73 77 Respiratory Rate Blood Pressure O2 Sat by Pulse 98 98 98 Oximetry 05/24/20 05/24/2020 05:31 05:36 05:41 Temperature Pulse Rate 76 80 79 Respiratory Rate Blood Pressure O2 Sat by Pulse 99 99 99 Oximetry 05/24/20 05/24/20 05/24/20 05:46 05:51 05:56 Temperature Pulse Rate 71 73 76 Respiratory Rate Blood Pressure 133/65 O2 Sat by Pulse 99 99 99 Oximetry 05/24/20 05/24/20 05/24/20 06:01 06:06 06:11 Temperature Pulse Rate 76 80 86 Respiratory Rate Blood Pressure O2 Sat by Pulse 98 99 98 Oximetry 05/24/20 05/24/20 05/24/20 06:13 06:16 06:21 Temperature Pulse Rate 76 76 84 Respiratory Rate Blood Pressure 137/67 O2 Sat by Pulse 98 97 Oximetry 05/24/20 05/24/20 05/24/20 06:25 06:26 06:31 Temperature Pulse Rate 78 78 77 Respiratory Rate Blood Pressure O2 Sat by Pulse 94 94 97 Oximetry 05/24/20 05/24/20 05/24/20 06:36 06:41 06:42 Temperature Pulse Rate 96 H 78 78 Respiratory Rate Blood Pressure 122/67 O2 Sat by Pulse 98 98 Oximetry 05/24/20 05/24/20 05/24/20 06:46 06:51 06:56 Temperature Pulse Rate 79 88 79 Respiratory Rate Blood Pressure O2 Sat by Pulse 98 97 97 Oximetry 05/24/20 05/24/20 05/24/20 07:01 07:06 07:11 Temperature Pulse Rate 76 75 77 Respiratory Rate Blood Pressure O2 Sat by Pulse 98 98 98 Oximetry 05/24/20 05/24/20 05/24/20 07:13 07:16 07:21 Temperature Pulse Rate 75 74 85 Respiratory Rate Blood Pressure 131/69 O2 Sat by Pulse 97 96 Oximetry 05/24/20 05/24/20 05/24/20 07:26 07:31 07:36 Temperature Pulse Rate 77 80 75 Respiratory Rate Blood Pressure O2 Sat by Pulse 97 97 98 Oximetry 05/24/20 05/24/20 05/24/20 07:41 07:42 07:46 Temperature Pulse Rate 75 71 70 Respiratory Rate Blood Pressure 129/67 O2 Sat by Pulse 97 97 Oximetry 05/24/20 05/24/20 05/24/20 07:51 07:56 08:01 Temperature Pulse Rate 75 78 77 Respiratory Rate Blood Pressure O2 Sat by Pulse 97 97 98 Oximetry 05/24/20 05/24/20 05/24/20 08:06 08:11 08:12 Temperature Pulse Rate 75 74 76 Respiratory Rate Blood Pressure 123/61 O2 Sat by Pulse 96 96 Oximetry 05/24/20 05/24/20 05/24/20 08:16 08:21 08:26 Temperature 97.7 F Pulse Rate 78 77 76 Respiratory Rate Blood Pressure O2 Sat by Pulse 96 98 97 Oximetry 05/24/20 05/24/20 05/24/20 08:31 08:36 08:41 Temperature Pulse Rate 83 76 89 Respiratory Rate Blood Pressure O2 Sat by Pulse 98 99 98 Oximetry 05/24/20 05/24/20 05/24/20 08:42 08:46 08:51 Temperature Pulse Rate 77 102 H 87 Respiratory Rate Blood Pressure 130/73 O2 Sat by Pulse 98 98 Oximetry 05/24/20 05/24/20 05/24/20 08:56 09:01 09:06 Temperature Pulse Rate 81 80 85 Respiratory Rate Blood Pressure O2 Sat by Pulse 96 98 96 Oximetry 05/24/20 05/24/20 05/24/20 09:11 09:12 09:16 Temperature Pulse Rate 87 85 85 Respiratory Rate Blood Pressure 113/57 O2 Sat by Pulse 97 98 Oximetry - Exam Abdomen: Present: soft. Absent: distention FHR: category 1 Uterine Contraction Monitor Mode: External Cervical Dilatation: 0.5 Cervical Effacement Percentage: 0 station: -4 Uterine Contraction Pattern: Irregular Extremities: normal - Labs Labs: Abnormal Labs 05/23/20 05/24/20 Unknown 06:38 Creatinine 0.5 L Magnesium 5.10 H AST < 5 L Lactate Dehydrogenase 545 H Laboratory Results - last 24 hr 05/23/20 05/23/20 05/23/20 18:00 Unknown Unknown WBC 10.6 RBC 4.17 Hgb 11.8 Hct 35.3 MCV 85 MCH 28 MCHC 33 RDW 14.5 Plt Count 221 Creatinine Estimated GFR Uric Acid Magnesium AST ALT Lactate Dehydrogenase Urine Color Straw Urine Turbidity Clear Urine pH 6.0 Ur Specific [place] 1.005 Urine Protein <15 mg/dl Urine Glucose (UA) Neg Urine Ketones Neg Urine Blood Neg Urine Nitrite Neg Urine Bilirubin Neg Urine Urobilinogen < 2.0 Ur Leukocyte Esterase Neg Urine WBC (Auto) 0.0 Urine RBC (Auto) 1.0 U Epithel Cells (Auto) 1.0 Syphilis IgG Antibody Nonreactive Blood Type Antibody Screen 05/23/20 05/24/20 05/24/20 Unknown 00:25 06:38 WBC RBC Hgb Hct MCV MCH MCHC RDW Plt Count Creatinine 0.5 L Estimated GFR > 60 Uric Acid 4.5 Magnesium 5.10 H AST < 5 L ALT 28 Lactate Dehydrogenase 545 H Urine Color Urine Turbidity Urine pH Ur Specific [place] Urine Protein Urine Glucose (UA) Urine Ketones Urine Blood Urine Nitrite Urine Bilirubin Urine Urobilinogen Ur Leukocyte Esterase Urine WBC (Auto) Urine RBC (Auto) U Epithel Cells (Auto) Syphilis IgG Antibody Blood Type O POSITIVE Antibody Screen Negative
[2020-05-24] MEDS: ONDANSETRON 4 MG/2 ML INJ IV PRN ×2 (10:32→19:09)
[2020-05-24] MEDS: BUTALB/ACETAMINOPHEN/CAFFEINE TAB PO PRN ×2 (10:35→18:05)
[2020-05-24] MEDS: miSOPROStol 25 MCG TAB PO SCH ×3 (10:56→20:05)
[2020-05-24] MEDS ORDERED: FLU VACC QUAD 2020-2021 (6 months +)/PF 60 0.5 ML SYRINGE IM ONE (12:00)
[2020-05-24] MEDS: MAGNESIUM SULFATE 40GM/1000ML 40 GM/1,000 ML BAG IV SCH (17:37)
--- NOTE | 2020-05-24 19:24 | Event Note ---
Date: 05/24/201747 Notified by ANDRA Donovan that pt reports chest pressure and pain with inspiration. Lungs CTAB per RN, and she has paused Mag. O2 sat 99%. Most recent Mag level 5.7. Ordered stat EKG, advised to hold off on restarting Mag. Dr. Huggins notified, agrees with plan.
--- NOTE | 2020-05-24 20:06 | Event Note ---
Date: 05/24/20 Pt states headache and chest pressure are completely relieved. EKG not yet performed, will cancel order. Cook catheter placed, each balloon inflated with 60cc sterile water, pt tolerated well, FHT reassuring throughout. Continue Cytotec administration.
--- NOTE | 2020-05-24 20:26 | Consultation ---
Consult Note - Parent Education I met with parent(s) and discussed the following:: Possible need for intubation and surfactant or other resp support, Temperature regulation, Possible need for IV fluids/TPN and IV antibiotics, Importance of providing breast milk & encouraged pumping aft delivery, Need to monitor for jaundice Parent(s) demonstrated understanding of all the information:: Yes Additional Comment: Discussed criteria for NICU admission and need for automatic transition period for evaluation. Assessment and Plan - Assessment Gestation:: 35 - Plan Plan: Will attend delivery Please call NICU with questions
[2020-05-25] MEDS ORDERED: miSOPROStol 25 MCG TAB PO SCH (00:30)
[2020-05-25] MEDS: miSOPROStol 25 MCG TAB PO SCH (00:33)
[2020-05-25] MEDS ORDERED: OXYTOCIN DRIP 30 UNITS/500 ML BAG IV SCH (02:00)
[2020-05-25] MEDS: ONDANSETRON 4 MG/2 ML INJ IV PRN ×2 (04:43→16:50)
--- NOTE | 2020-05-25 09:48 | Progress Note ---
Assessment and Plan - Patient Problems (1) Encounter for induction of labor Current Visit: Yes Status: Acute Plan to address problem: Continue manipulation of the Cook catheter until it is dislodged. will begin to increase Pitocin incrementally (2) AMA (advanced maternal age) multigravida 35+ Current Visit: No Status: Acute Qualifiers: Trimester: third trimester Qualified Code(s): O09.523 - Supervision of elderly multigravida, third trimester (3) Mild preeclampsia Current Visit: No Status: Acute (4) Morbid obesity Current Visit: No Status: Acute Subjective - Subjective Date of service: 05/25/20 Principal diagnosis: Preeclampsia with severe features, IUP at 35w4d Interval history: 39-year-old -0-0-5 at 35 and 6 weeks who was admitted for induction of labor secondary to preeclampsia. The patient currently has a Cook catheter in place that has not been removed. Her induction agents have included Cytotec and she is currently transition to the low-dose Pitocin. The patient is currently receiving magnesium IV therapy. Patient reports: movement normal, contractions, no loss of fluid, no vaginal bleeding Objective - Vital Signs Vital Signs: Vital Signs - 12hr 05/24/20 05/24/20 05/24/20 21:51 21:56 22:01 Temperature Pulse Rate 67 69 77 Respiratory Rate Blood Pressure Blood Pressure [Right] O2 Sat by Pulse 97 97 98 Oximetry 05/24/20 05/24/20 05/24/20 22:06 22:11 22:16 Temperature Pulse Rate 69 66 65 Respiratory Rate Blood Pressure Blood Pressure [Right] O2 Sat by Pulse 98 98 99 Oximetry 05/24/20 05/24/20 05/24/20 22:21 22:26 22:31 Temperature Pulse Rate 65 69 66 Respiratory Rate Blood Pressure 117/68 Blood Pressure [Right] O2 Sat by Pulse 99 98 98 Oximetry 05/24/20 05/24/20 05/24/20 22:36 22:41 22:46 Temperature Pulse Rate 68 71 71 Respiratory Rate Blood Pressure Blood Pressure [Right] O2 Sat by Pulse 98 98 98 Oximetry 05/24/20 05/24/20 05/24/20 22:51 22:56 23:01 Temperature Pulse Rate 76 65 66 Respiratory Rate Blood Pressure Blood Pressure [Right] O2 Sat by Pulse 96 99 98 Oximetry 12/05/24/20 05/24/20 23:06 23:11 23:16 Temperature Pulse Rate 77 73 68 Respiratory Rate Blood Pressure Blood Pressure [Right] O2 Sat by Pulse 97 97 98 Oximetry 05/24/20 05/24/20 05/24/20 23:20 23:21 23:26 Temperature Pulse Rate 68 70 73 Respiratory Rate Blood Pressure 128/77 Blood Pressure [Right] O2 Sat by Pulse 97 96 Oximetry 05/24/20 05/24/20 05/24/20 23:31 23:35 23:36 Temperature Pulse Rate 76 78 73 Respiratory Rate Blood Pressure Blood Pressure [Right] O2 Sat by Pulse 98 52 L 97 Oximetry 05/24/20 05/24/20 05/24/20 23:41 23:46 23:51 Temperature Pulse Rate 64 63 73 Respiratory Rate Blood Pressure Blood Pressure [Right] O2 Sat by Pulse 96 97 96 Oximetry 05/24/20 05/24/20 05/25/20 23:56 23:58 00:01 Temperature Pulse Rate 64 84 69 Respiratory Rate Blood Pressure Blood Pressure [Right] O2 Sat by Pulse 98 93 100 Oximetry 05/25/20 05/25/20 05/25/20 00:06 00:11 00:16 Temperature Pulse Rate 65 67 71 Respiratory Rate Blood Pressure Blood Pressure [Right] O2 Sat by Pulse 99 97 98 Oximetry 05/25/20 05/25/20 05/25/20 00:20 00:21 00:26 Temperature Pulse Rate 67 66 69 Respiratory Rate Blood Pressure 130/80 Blood Pressure [Right] O2 Sat by Pulse 98 98 Oximetry 05/25/20 05/25/20 05/25/20 00:31 00:36 00:41 Temperature Pulse Rate 69 66 69 Respiratory Rate Blood Pressure Blood Pressure [Right] O2 Sat by Pulse 98 98 99 Oximetry 05/25/20 05/25/20 05/25/20 00:46 00:51 00:53 Temperature Pulse Rate 65 71 76 Respiratory Rate Blood Pressure Blood Pressure [Right] O2 Sat by Pulse 99 99 88 Oximetry 05/25/20 05/25/20 05/25/20 00:56 01:01 01:06 Temperature Pulse Rate 66 72 69 Respiratory Rate Blood Pressure Blood Pressure [Right] O2 Sat by Pulse 99 98 98 Oximetry 05/25/20 05/25/20 05/25/20 01:11 01:16 01:20 Temperature Pulse Rate 67 68 68 Respiratory Rate Blood Pressure 134/86 Blood Pressure [Right] O2 Sat by Pulse 99 99 Oximetry 05/25/20 05/25/20 05/25/20 01:21 01:26 01:31 Temperature Pulse Rate 68 72 67 Respiratory Rate Blood Pressure Blood Pressure [Right] O2 Sat by Pulse 99 98 99 Oximetry 05/25/20 05/25/20 05/25/20 01:36 01:41 01:46 Temperature Pulse Rate 70 70 68 Respiratory Rate Blood Pressure Blood Pressure [Right] O2 Sat by Pulse 98 97 97 Oximetry 05/25/20 05/25/20 05/25/20 01:51 01:56 02:01 Temperature Pulse Rate 68 70 68 Respiratory Rate Blood Pressure Blood Pressure [Right] O2 Sat by Pulse 97 96 97 Oximetry 05/25/20 05/25/20 05/25/20 02:06 02:11 02:16 Temperature Pulse Rate 68 65 65 Respiratory Rate Blood Pressure Blood Pressure [Right] O2 Sat by Pulse 97 98 97 Oximetry 05/25/20 05/25/20 05/25/20 02:21 02:26 02:31 Temperature Pulse Rate 63 69 68 Respiratory Rate Blood Pressure 126/78 Blood Pressure [Right] O2 Sat by Pulse 97 99 98 Oximetry 05/25/20 05/25/20 05/25/20 02:36 02:39 02:41 Temperature Pulse Rate 66 70 65 Respiratory Rate Blood Pressure Blood Pressure [Right] O2 Sat by Pulse 98 94 96 Oximetry 05/25/20 05/25/20 05/25/20 02:46 02:51 02:56 Temperature Pulse Rate 70 68 69 Respiratory Rate Blood Pressure Blood Pressure [Right] O2 Sat by Pulse 96 96 97 Oximetry 05/25/20 05/25/20 05/25/20 03:01 03:06 03:11 Temperature Pulse Rate 72 69 71 Respiratory Rate Blood Pressure Blood Pressure [Right] O2 Sat by Pulse 96 97 98 Oximetry 05/25/20 05/25/20 05/25/20 03:16 03:20 03:21 Temperature Pulse Rate 70 71 74 Respiratory Rate Blood Pressure 114/72 Blood Pressure [Right] O2 Sat by Pulse 100 100 Oximetry 05/25/20 05/25/20 05/25/20 03:26 03:31 03:36 Temperature Pulse Rate 68 71 71 Respiratory Rate Blood Pressure Blood Pressure [Right] O2 Sat by Pulse 100 99 99 Oximetry 05/25/20 05/25/20 05/25/20 03:41 03:46 03:51 Temperature Pulse Rate 70 81 65 Respiratory Rate Blood Pressure Blood Pressure [Right] O2 Sat by Pulse 99 99 98 Oximetry 05/25/20 05/25/20 05/25/20 03:56 04:01 04:06 Temperature Pulse Rate 86 97 H 76 Respiratory Rate Blood Pressure Blood Pressure [Right] O2 Sat by Pulse 99 100 98 Oximetry 05/25/20 05/25/20 05/25/20 04:11 04:16 04:20 Temperature Pulse Rate 74 76 75 Respiratory Rate Blood Pressure 135/70 Blood Pressure [Right] O2 Sat by Pulse 98 98 Oximetry 05/25/20 05/25/20 05/25/20 04:21 04:26 04:31 Temperature Pulse Rate 75 80 85 Respiratory Rate Blood Pressure Blood Pressure [Right] O2 Sat by Pulse 98 98 96 Oximetry 05/25/20 05/25/20 05/25/20 04:36 04:41 04:46 Temperature Pulse Rate 83 75 71 Respiratory Rate Blood Pressure Blood Pressure [Right] O2 Sat by Pulse 97 98 98 Oximetry 05/25/20 05/25/20 05/25/20 04:51 04:56 05:01 Temperature Pulse Rate 70 94 H 71 Respiratory Rate Blood Pressure Blood Pressure [Right] O2 Sat by Pulse 97 97 96 Oximetry 05/25/20 05/25/20 05/25/20 05:06 05:11 05:16 Temperature Pulse Rate 77 69 85 Respiratory Rate Blood Pressure Blood Pressure [Right] O2 Sat by Pulse 97 96 95 Oximetry 05/25/20 05/25/20 05/25/20 05:17 05:20 05:21 Temperature Pulse Rate 85 67 67 Respiratory Rate Blood Pressure 135/76 Blood Pressure [Right] O2 Sat by Pulse 92 99 Oximetry 05/25/20 05/25/20 05/25/20 05:26 05:31 05:36 Temperature Pulse Rate 77 71 68 Respiratory Rate Blood Pressure Blood Pressure [Right] O2 Sat by Pulse 98 98 96 Oximetry 05/25/20 05/25/20 05/25/20 05:41 05:45 05:46 Temperature Pulse Rate 79 85 81 Respiratory Rate Blood Pressure Blood Pressure [Right] O2 Sat by Pulse 96 84 96 Oximetry 05/25/20 05/25/20 05/25/20 05:51 05:56 06:01 Temperature Pulse Rate 72 75 85 Respiratory Rate Blood Pressure Blood Pressure [Right] O2 Sat by Pulse 98 97 97 Oximetry 05/25/20 05/25/20 05/25/20 06:06 06:11 06:12 Temperature Pulse Rate 67 71 81 Respiratory Rate Blood Pressure Blood Pressure [Right] O2 Sat by Pulse 98 96 94 Oximetry 05/25/20 05/25/20 05/25/20 06:16 06:21 06:26 Temperature Pulse Rate 81 69 76 Respiratory Rate Blood Pressure 132/89 Blood Pressure [Right] O2 Sat by Pulse 95 96 97 Oximetry 05/25/20 05/25/20 05/25/20 06:31 06:35 06:36 Temperature Pulse Rate 86 99 H 100 H Respiratory Rate Blood Pressure Blood Pressure [Right] O2 Sat by Pulse 96 94 94 Oximetry 05/25/20 05/25/20 05/25/20 06:41 06:46 06:51 Temperature Pulse Rate 77 78 76 Respiratory Rate Blood Pressure Blood Pressure [Right] O2 Sat by Pulse 98 98 98 Oximetry 05/25/20 05/25/20 05/25/20 06:56 06:57 07:01 Temperature Pulse Rate 79 86 83 Respiratory Rate Blood Pressure Blood Pressure [Right] O2 Sat by Pulse 97 94 97 Oximetry 05/25/20 05/25/20 05/25/20 07:06 07:07 07:11 Temperature 98.0 F Pulse Rate 77 76 78 Respiratory 18 Rate Blood Pressure 154/92 134/81 Blood Pressure 134/81 [Right] O2 Sat by Pulse 97 98 98 Oximetry 05/25/20 05/25/20 05/25/20 07:16 07:20 07:21 Temperature Pulse Rate 82 72 71 Respiratory Rate Blood Pressure 130/76 Blood Pressure [Right] O2 Sat by Pulse 98 99 Oximetry 05/25/20 05/25/20 05/25/20 07:26 07:30 07:31 Temperature Pulse Rate 72 76 78 Respiratory Rate Blood Pressure Blood Pressure [Right] O2 Sat by Pulse 99 73 L 99 Oximetry 05/25/20 05/25/20 05/25/20 07:36 07:41 07:46 Temperature Pulse Rate 71 72 72 Respiratory Rate Blood Pressure Blood Pressure [Right] O2 Sat by Pulse 97 99 98 Oximetry 05/25/20 05/25/20 05/25/20 07:51 07:56 08:00 Temperature Pulse Rate 75 70 51 L Respiratory Rate Blood Pressure Blood Pressure [Right] O2 Sat by Pulse 98 98 83 L Oximetry 05/25/20 05/25/20 05/25/20 08:01 08:06 08:11 Temperature Pulse Rate 65 79 75 Respiratory Rate Blood Pressure Blood Pressure [Right] O2 Sat by Pulse 83 L 97 98 Oximetry 05/25/20 05/25/20 05/25/20 08:16 08:21 08:23 Temperature Pulse Rate 81 74 91 H Respiratory Rate Blood Pressure 124/70 Blood Pressure [Right] O2 Sat by Pulse 98 96 94 Oximetry 05/25/20 05/25/20 05/25/20 08:26 08:31 08:36 Temperature Pulse Rate 74 94 H 71 Respiratory Rate Blood Pressure Blood Pressure [Right] O2 Sat by Pulse 97 98 97 Oximetry 05/25/20 05/25/20 05/25/20 08:41 08:46 08:47 Temperature Pulse Rate 73 90 Respiratory 18 Rate Blood Pressure Blood Pressure [Right] O2 Sat by Pulse 98 99 Oximetry 05/25/20 05/25/20 05/25/20 08:51 08:53 08:56 Temperature Pulse Rate 73 72 72 Respiratory Rate Blood Pressure Blood Pressure [Right] O2 Sat by Pulse 97 94 95 Oximetry 05/25/20 05/25/20 05/25/20 09:01 09:05 09:06 Temperature Pulse Rate 71 80 74 Respiratory Rate Blood Pressure Blood Pressure [Right] O2 Sat by Pulse 95 94 96 Oximetry 05/25/20 05/25/20 05/25/20 09:11 09:15 09:16 Temperature Pulse Rate 70 75 71 Respiratory Rate Blood Pressure Blood Pressure [Right] O2 Sat by Pulse 96 94 97 Oximetry 05/25/20 05/25/20 05/25/20 09:20 09:21 09:26 Temperature Pulse Rate 72 74 75 Respiratory Rate Blood Pressure 121/77 Blood Pressure [Right] O2 Sat by Pulse 97 96 Oximetry 05/25/20 05/25/20 05/25/20 09:31 09:36 09:38 Temperature Pulse Rate 74 74 84 Respiratory Rate Blood Pressure Blood Pressure [Right] O2 Sat by Pulse 97 96 94 Oximetry 05/25/20 05/25/20 09:41 09:43 Temperature Pulse Rate 72 77 Respiratory Rate Blood Pressure Blood Pressure [Right] O2 Sat by Pulse 96 94 Oximetry - Labs Labs: Abnormal Labs 05/23/20 05/24/20 05/24/20 Unknown 06:38 15:02 Creatinine 0.5 L Glucose Magnesium 5.10 H 5.70 H AST < 5 L Lactate Dehydrogenase 545 H 05/24/20 05/24/20 05/25/20 15:02 18:19 01:15 Creatinine Glucose 109 H Magnesium 5.10 H 4.80 H AST Lactate Dehydrogenase 05/25/20 07:44 Creatinine Glucose Magnesium 4.60 H AST Lactate Dehydrogenase Laboratory Results - last 24 hr 05/24/20 05/24/20 05/24/20 15:02 15:02 18:19 Glucose 109 H Magnesium 5.70 H 5.10 H 05/25/20 05/25/20 01:15 07:44 Glucose Magnesium 4.80 H 4.60 H
--- NOTE | 2020-05-25 11:03 | Event Note ---
Date: 05/25/20 Amniotomy performed with copious clear fluid. Cervix /-2. Pitocin augmentation. CAT I
[2020-05-25] MEDS: LACTATED RINGERS 1,000 ML IV SCH ×2 (11:04→15:07)
[2020-05-25] MEDS: PENICILLIN G POTASSIUM 2.5 MIL.UNITS in SODIUM CHLORIDE 0.9% 50 ML IV SCH ×3 (12:00→21:03)
[2020-05-25] MEDS ORDERED: ePHEDrine SULFATE 50 MG/1 ML INJ ONE (14:05)
--- NOTE | 2020-05-25 14:05 | Anesthesia Consultation ---
Anesthesia Consult and Med Hx Date of service: 05/25/20 - Airway Anesthetic Teeth Evaluation: Poor ROM Head & Neck: Adequate Mental/Hyoid Distance: Adequate Mallampati Class: Class III Intubation Access Assessment: Possibly Difficult - Pulmonary Exam CTA: Yes - Cardiac Exam Cardiac Exam: RRR - Pre-Operative Health Status ASA Pre-Surgery Classification: ASA3 Proposed Anesthetic Plan: Epidural - Pulmonary Hx Smoking: No Hx Asthma: No Hx Respiratory Symptoms: No SOB: No COPD: No Home Oxygen Therapy: No Hx Pneumonia: No Hx Sleep Apnea: No - Cardiovascular System Hx Hypertension: Yes Hx Coronary Artery Disease: No Hx Heart Attack/AMI: No Hx Angina: No Hx Percutaneous Transluminal Coronary Angioplasty (PTCA): No Hx Cardia Arrhythmia: No Hx Pacemaker: No Hx Internal Defibrillator: No Hx Valvular Heart Disease: No Hx Heart Murmur: No Hx Peripheral Vascular Disease: No - Central Nervous System Hx Neuromuscular Disorder: No Hx Seizures: No CVA: No Hx Back Pain: No Hx Psychiatric Problems: No - Gastrointestinal Hx Ulcer: No Hx Gastroesophageal Reflux Disease: No - Endocrine Hx Renal Disease: No Hx End Stage Renal Disease: No Hx Cirrhosis: No Hx Liver Disease: No Hx Insulin Dependent Diabetes: No Hx Non-Insulin Dependent Diabetes: No Hx Thyroid Disease: No Hx Hypothyroidism: No Hx Hyperthyroidism: No - Hematic Hx Anemia: Yes Hx Sickle Cell Disease: No - Other Systems Hx Alcohol Use: No Hx Substance Use: No Hx Cancer: No Hx Obesity: Yes
[2020-05-25] MEDS ORDERED: fentaNYL-BUPIV 2 MCG/ML-0.125% 200 MCG/100 ML BAG EPIDURAL ONE (14:58)
[2020-05-25] MEDS ORDERED: NALOXONE 2 MG/2 ML INJ IV PRN (15:19)
[2020-05-25] MEDS: fentaNYL-BUPIV 2 MCG/ML-0.125% 200 MCG/100 ML BAG EPIDURAL SCH (15:33)
--- NOTE | 2020-05-25 16:54 | Progress Note ---
Labor Epidural - Labor Epidural Start Time: 14:34 Stop Time: 14:43 Performed by:: SALIMA COLLIER Procedure: Patient is requesting a laboring epidural for laboring pain. Patient IDed, H&P reviewed, all questions and concerns were answered, and consent was signed. Timeout was performed at bedside. Patient in sitting position. Sterile prep and drape was performed. [4] ml of 1% lidocaine skin wheal at L[3]- L [4]. 18- gauge Tuohy epidural needle was advanced to loss of resistance with air technique to 8cm. Negative CSF negative blood via Tuohy needle. #27g Spinal needle clear, free flowing CSF, Pecedex 5 mcg. Epidural catheter advanced to [11] centimeters. [negative] Aspiration [negative] test dose. Sterile dressing applied. Patient tolerated procedure.
[2020-05-25] MEDS: ePHEDrine SULFATE 50 MG/1 ML INJ IV PRN ×3 (17:47→18:01)
--- NOTE | 2020-05-25 17:53 | Event Note ---
Date: 05/25/20 Patient with intermittent late decels. Cervix 7/-2. Pitocin held for recovery of fetus. Internal monitors placed.
[2020-05-26] MEDS: BUTALB/ACETAMINOPHEN/CAFFEINE TAB PO PRN (00:22)
[2020-05-26] MEDS: PENICILLIN G POTASSIUM 2.5 MIL.UNITS in SODIUM CHLORIDE 0.9% 50 ML IV SCH (01:37)
[2020-05-26] MEDS: fentaNYL-BUPIV 2 MCG/ML-0.125% 200 MCG/100 ML BAG EPIDURAL SCH (02:09)
[2020-05-26] MEDS: OXYTOCIN DRIP 30 UNITS/500 ML BAG IV SCH ×2 (02:41→03:45)
[2020-05-26] MEDS ORDERED: PROMETHAZINE 25 MG RECT SUPP PR PRN (02:50)
[2020-05-26] MEDS ORDERED: diphenhydrAMINE 25 MG CAP PO PRN (02:50)
[2020-05-26] MEDS ORDERED: WITCH HAZEL/ GLYCERIN PAD TP PRN (02:50)
[2020-05-26] MEDS ORDERED: ONDANSETRON 4 MG/2 ML INJ IV PRN (02:50)
[2020-05-26] MEDS ORDERED: LANOLIN/ZINC/DIMETHICONE (LANSINOH) 7 GM TP PRN (02:50)
[2020-05-26] MEDS ORDERED: PROMETHAZINE 25 MG TAB PO PRN (02:50)
[2020-05-26] MEDS ORDERED: MAGNESIUM HYDROXIDE (MOM) ORAL LIQD UDC PO PRN (02:50)
--- NOTE | 2020-05-26 02:50 | Procedure Note ---
OB Delivery Note - Delivery Date of Delivery: 05/26/20 Surgeon: FLKAITA THOMPSON Estimated blood loss: 100cc - Vaginal Delivery presentation: vertex Delivery position: OA Intrapartum events: preeclampsia Delivery induction: AROM Delivery augmentation: rupture of membranes, pitocin Delivery monitor: external FHT, external uterine, internal FHT, internal uterine Route of delivery: Delivery placenta: spontaneous Delivery cord: 3 umbilical vessels Episiotomy: none Delivery laceration: none Anesthesia: epidural - A at 1 minute: 8 at 5 minutes: 9 Infant Gender: Male (weight 6lbs 2oz)
[2020-05-26] MEDS: MAGNESIUM SULFATE 40GM/1000ML 40 GM/1,000 ML BAG IV SCH ×2 (03:35→10:41)
[2020-05-26] MEDS: IBUPROFEN 600 MG TAB PO SCH ×4 (03:46→21:30)
[2020-05-26] MEDS ORDERED: OXYTOCIN 10 UNIT/1 ML INJ ONE (04:06)
[2020-05-26] MEDS: HYDROcodone/ACETAMINOPHEN 5-325 MG TAB PO PRN ×3 (04:18→18:13)
--- NOTE | 2020-05-26 10:43 | Post Anesthesia Evaluation ---
- Post Anesthesia Evaluation Patient Participated: Yes Airway Patent: Yes Stable Respiratory Function: Yes Nausea/Vomiting: No Temp > 96.8F: Yes Pain Manageable: Yes Adequeate Hydration: Yes Anesthesia Complications: No Block Receding Appropriately: Yes Patient on Ventilator: No
[2020-05-26] MEDS: DOCUSATE SODIUM 100 MG CAP PO SCH ×2 (13:12→21:30)
[2020-05-26 16:02] LABS: Hematocrit 30.1 % (30.3-42.9); Hemoglobin 9.9 gm/dl (10.1-14.3)
[2020-05-27] MEDS: HYDROcodone/ACETAMINOPHEN 5-325 MG TAB PO PRN ×2 (02:25→08:28)
[2020-05-27] MEDS: IBUPROFEN 600 MG TAB PO SCH ×4 (03:35→22:50)
[2020-05-27] MEDS: DOCUSATE SODIUM 100 MG CAP PO SCH ×2 (10:33→22:50)
--- NOTE | 2020-05-27 12:53 | Progress Note ---
Assessment and Plan - Patient Problems (1) Encounter for induction of labor Current Visit: Yes Status: Acute Plan to address problem: Patient doing well Will discuss with patient leaving tomorrow morning (2) AMA (advanced maternal age) multigravida 35+ Current Visit: No Status: Acute Qualifiers: Trimester: third trimester Qualified Code(s): O09.523 - Supervision of elderly multigravida, third trimester (3) Mild preeclampsia Current Visit: No Status: Acute (4) Morbid obesity Current Visit: No Status: Acute Subjective - Subjective Date of service: 05/27/20 Principal diagnosis: Preeclampsia with severe features, IUP at 35w4d Interval history: The patient is currently in the NICU visiting her infant. Vital signs indicate her blood pressures have normalized. Patient reports: appetite normal, voiding normally, pain well controlled [place]: in NICU Objective - Vital Signs Latest vital signs: Vital Signs Temp Pulse Resp BP BP Pulse Ox 05/27/20 08:38 97.9 F 68 18 113/77 96 05/27/20 04:38 97.9 F 75 20 137/77 93 05/27/20 04:00 97.9 F 16 05/27/20 03:59 78 97 05/27/20 03:54 75 98 05/27/20 03:49 74 97 05/27/20 03:44 75 98 05/27/20 03:41 74 124/79 05/27/20 03:39 75 98 05/27/20 03:34 78 97 05/27/20 03:29 76 98 05/27/20 03:24 74 98 05/27/20 03:19 70 97 05/27/20 03:14 74 98 05/27/20 03:09 71 98 05/27/20 03:04 76 99 05/27/20 02:59 81 99 05/27/20 02:54 71 99 05/27/20 02:49 66 98 05/27/20 02:44 68 98 05/27/20 02:41 68 108/58 05/27/20 02:39 66 98 05/27/20 02:34 71 98 05/27/20 02:29 70 98 05/27/20 02:24 72 99 05/27/20 02:21 71 94 05/27/20 02:19 73 97 05/27/20 02:15 69 94 05/27/20 02:14 69 97 05/27/20 02:09 68 97 05/27/20 02:04 72 96 05/27/20 01:59 67 97 05/27/20 01:54 67 97 05/27/20 01:49 69 97 05/27/20 01:44 68 96 05/27/20 01:41 66 112/59 05/27/20 01:39 72 96 05/27/20 01:34 67 96 05/27/20 01:29 67 97 05/27/20 01:24 67 97 05/27/20 01:19 67 97 05/27/20 01:14 70 97 05/27/20 01:09 71 97 05/27/20 01:04 75 97 05/27/20 00:59 72 96 05/27/20 00:54 69 97 05/27/20 00:53 69 93 05/27/20 00:49 66 98 05/27/20 00:44 68 97 05/27/20 00:41 68 125/74 05/27/20 00:39 74 97 05/27/20 00:34 66 94 05/27/20 00:29 67 96 05/27/20 00:24 67 96 05/27/20 00:19 69 96 05/27/20 00:14 69 96 05/27/20 00:09 69 97 05/27/20 00:04 68 96 05/26/20 23:59 71 96 05/26/20 23:54 67 95 05/26/20 23:49 68 95 05/26/20 23:44 67 98 05/26/20 23:41 97.7 F 67 16 107/58 05/26/20 23:39 74 97 05/26/20 23:37 71 94 05/26/20 23:34 71 96 05/26/20 23:29 69 96 05/26/20 23:24 68 96 05/26/20 23:19 68 97 05/26/20 23:14 72 96 05/26/20 23:09 72 96 05/26/20 23:04 71 96 05/26/20 22:59 70 97 05/26/20 22:54 71 96 05/26/20 22:49 71 96 05/26/20 22:44 68 98 05/26/20 22:41 71 113/59 05/26/20 22:39 72 96 05/26/20 22:34 67 97 05/26/20 22:29 69 97 05/26/20 22:24 69 96 05/26/20 22:19 71 96 05/26/20 22:14 72 96 05/26/20 22:09 72 96 05/26/20 22:04 71 96 05/26/20 21:59 71 96 05/26/20 21:54 71 97 05/26/20 21:49 69 96 05/26/20 21:44 71 97 05/26/20 21:41 67 113/59 05/26/20 21:39 65 97 05/26/20 21:34 66 98 05/26/20 21:29 77 99 05/26/20 21:24 73 98 05/26/20 21:22 75 91 05/26/20 21:19 73 98 05/26/20 21:14 79 97 05/26/20 21:09 78 96 05/26/20 21:04 78 95 05/26/20 21:02 82 93 05/26/20 20:59 73 97 05/26/20 20:54 71 97 05/26/20 20:49 67 97 05/26/20 20:44 67 98 05/26/20 20:41 64 139/76 05/26/20 20:39 86 98 05/26/20 20:34 68 98 05/26/20 20:29 67 98 05/26/20 20:24 67 98 05/26/20 20:19 69 98 05/26/20 20:14 67 98 05/26/20 20:09 68 99 05/26/20 20:04 65 99 05/26/20 19:59 66 98 05/26/20 19:54 70 99 05/26/20 19:49 77 96 02 19:44 73 95 02 19:41 71 104/54 02 19:39 72 97 05/26/20 19:34 67 97 02 19:29 64 96 05/26/20 19:24 65 97 02 19:19 76 97 02 19:14 65 99 02 19:09 82 98 02 19:04 70 98 05/26/20 18:59 75 98 01/02/21 18:54 78 98 05/26/20 18:49 68 99 05/26/20 18:44 70 99 05/26/20 18:41 64 127/74 05/26/20 18:39 70 98 05/26/20 18:34 65 99 05/26/20 18:29 68 99 05/26/20 18:24 68 99 05/26/20 18:19 80 99 05/26/20 18:16 83 69 L 05/26/20 18:14 81 97 05/26/20 18:13 20 05/26/20 18:09 66 99 05/26/20 18:04 70 99 05/26/20 17:59 68 97 05/26/20 17:54 67 99 05/26/20 17:49 71 99 05/26/20 17:44 70 99 05/26/20 17:41 71 104/57 05/26/20 17:39 70 97 05/26/20 17:34 65 99 05/26/20 17:29 70 97 05/26/20 17:24 73 97 05/26/20 17:19 73 97 05/26/20 17:14 71 99 05/26/20 17:09 72 100 05/26/20 17:04 78 99 05/26/20 16:59 73 99 05/26/20 16:54 75 98 05/26/20 16:49 78 99 05/26/20 16:44 79 98 05/26/20 16:41 77 131/66 05/26/20 16:39 77 99 05/26/20 16:34 76 99 05/26/20 16:29 79 99 05/26/20 16:24 80 99 05/26/20 16:19 75 97 05/26/20 16:15 98.0 F 79 20 124/76 124/76 98 05/26/20 16:14 85 99 05/26/20 14:47 73 99 05/26/20 14:42 77 99 05/26/20 14:41 68 126/88 05/26/20 14:37 79 98 05/26/20 14:32 89 98 05/26/20 14:29 86 89 05/26/20 14:27 66 99 05/26/20 14:22 70 96 05/26/20 14:17 66 96 05/26/20 14:12 67 96 05/26/20 14:07 68 97 05/26/20 14:02 67 96 05/26/20 13:57 69 97 05/26/20 13:52 65 96 05/26/20 13:47 69 96 05/26/20 13:42 65 97 05/26/20 13:41 66 125/71 05/26/20 13:37 67 95 05/26/20 13:32 67 96 05/26/20 13:27 66 96 05/26/20 13:22 66 96 05/26/20 13:17 84 96 05/26/20 13:12 77 96 05/26/20 13:07 85 97 05/26/20 13:02 80 97 05/26/20 12:57 89 85 Intake and Output 05/26/20 05/27/20 05/27/20 22:59 06:59 14:59 Intake Total 800 400 Output Total 1825 1450 Balance -1025 -1050 Intake: Oral 800 400 Output: Urine 1725 1450 Indwelling Catheter 1725 1250 Void 200 Emesis 100 Other: Total, Intake Amount 800 400 Total, Output Amount 800 200 # Voids Void 1 - Labs Labs: Abnormal lab results 05/26/20 05/26/20 05/26/20 Range/Units 14:53 14:53 19:50 Hgb 9.9 L (10.1-14.3) gm/dl Hct 30.1 L (30.3-42.9) % Magnesium 5.60 H 5.80 H (1.7-2.3) mg/dL
[2020-05-28] MEDS: HYDROcodone/ACETAMINOPHEN 5-325 MG TAB PO PRN ×4 (00:44→18:47)
[2020-05-28] MEDS: IBUPROFEN 600 MG TAB PO SCH ×2 (04:40→18:49)
[2020-05-28] MEDS ORDERED: DIPHtheria,PERTUSSIS(ACELL),TETANUS VACCINE/PF 0.5 ML VIAL IM ONE (06:00)
--- NOTE | 2020-05-28 08:31 | Progress Note ---
Assessment and Plan A: PPD#2 s/p at 35 wks secondary to preeclampsia with severe features s/p Magnesium Sulfate for 24 hours Persistent Headache Right Calf Tenderness Morbid Obesity P: CT head without contrast Right lower extremity doppler study Repeat hemoglobin and hematocrit Closely monitor clinical status Subjective - Subjective Date of service: 05/28/20 Principal diagnosis: Preeclampsia with severe features, IUP at 35w4d, morbid obesity Interval history: Pt continues to report headache. She also reports "dizzy spells." She reports minimal lochia and right calf tenderness. Patient reports: appetite normal, voiding normally, dizzy ambulation, pain well controlled [place]: in NICU Objective - Vital Signs Latest vital signs: Vital Signs Temp Pulse Resp BP BP Pulse Ox 05/28/20 04:16 98.9 F 66 20 137/79 94 05/27/20 23:14 98.2 F 70 20 121/63 98 05/27/20 19:51 98.0 F 78 20 112/72 96 05/27/20 16:39 98.2 F 76 18 121/67 96 05/27/20 08:38 97.9 F 68 18 113/77 96 Intake and Output 05/27/20 05/28/20 05/28/20 22:59 06:59 14:59 Intake Total 240 Balance 240 Intake: Oral 240 Other: Total, Intake Amount 240 # Voids Void 4 - Exam Breasts: Present: deferred Abdomen: Present: soft Uterus: Present: fundal height at umbilicus Extremities: Present: tenderness (right calf ), edema (trace edema )
--- NOTE | 2020-05-28 10:39 | Cat Scan Report ---
CT HEAD WITHOUT CONTRAST INDICATION / CLINICAL INFORMATION: persistent headache, severe preeclampsia. TECHNIQUE: Axial imaging performed from the skull apex through the skull base without the use of cont rast. Sagittal and coronal reformatted images. All CT scans at this location are performed using CT dose reduction for ALARA by means of automated exposure control. COMPARISON: None available. FINDINGS: CEREBRAL PARENCHYMA: No significant abnormality. No acute territorial infarct. HEMORRHAGE: None. EXTRA-AXIAL SPACES: Normal in size and morphology for the patient's age. VENTRICULAR SYSTEM: Normal in size and morphology for the patient's age. MIDLINE SHIFT OR HERNIATION: None. CEREBELLUM / BRAINSTEM: No significant abnormality. CALVARIUM: No significant abnormality. ORBITS: Normal as visualized. PARANASAL SINUSES / MASTOID AIR CELLS: Normal as visualized. SOFT TISSUES of HEAD: No significant abnormality. ADDITIONAL FINDINGS: None. IMPRESSION: No acute intracranial abnormality. Signer Name: Carroll Araiza Jr, MD Signed: 05/28/2020 10:35 AM Workstation Name: [id number]
--- NOTE | 2020-05-28 12:03 | Vascular Lab Report ---
DUPLEX DOPPLER LOWER EXTREMITY VEINS, RIGHT INDICATION: R calf tenderness, morbid obesity, recent delivery. TECHNIQUE: Duplex doppler imaging was performed through the veins of the right lower extremity using venous compression and other maneuvers. COMPARISON: No relevant prior imaging study available. FINDINGS: Right Common femoral vein: Negative. Right Superficial femoral vein: Negative. Right Popliteal vein: Negative. Right Calf veins: Negative. Additional findings: None. IMPRESSION: No sonographic evidence for DVT in the right lower extremity. Signer Name: Carroll Araiza Jr, MD Signed: 05/28/2020 11:59 AM Workstation Name: [id number]
[2020-05-28] MEDS: DOCUSATE SODIUM 100 MG CAP PO SCH ×2 (12:09→21:37)
[2020-05-28 14:55] LABS: Hematocrit 26.7 % (30.3-42.9)
[2020-05-29] MEDS: HYDROcodone/ACETAMINOPHEN 5-325 MG TAB PO PRN ×2 (01:20→11:06)
[2020-05-29] MEDS: IBUPROFEN 600 MG TAB PO SCH (05:05)
--- NOTE | 2020-05-29 08:06 | Progress Note ---
Assessment and Plan A: PPD #3 s/p at 35 wks for pre-eclampsia with severe features, s/p magnesium sulfate. AMA. M.O. CT scan of head and venous dopppler studies both WNL. Bilateral lower extremity edema present. Acute anemia related to blood loss. Vital signs stable. P: Ferrous Sulfate supplementation and one time dose of Lasix for edema. Anticipate discharge later this evening. Patient to return to [facility] in 1 week for BP check and surveillance of lower extremity edema. Subjective - Subjective Date of service: 05/29/20 Principal diagnosis: Preeclampsia with severe features, IUP at 35w4d, morbid obesity Interval history: Patient reporting improvements in dizzy spells but still complaining of bilateral lower extremity pain and edema. Patient reports: appetite normal, voiding normally, pain well controlled, ambulating normally [place]: in NICU Objective - Vital Signs Latest vital signs: Vital Signs Temp Pulse Resp BP BP Pulse Ox 05/29/20 04:30 98 F 66 18 117/69 99 05/29/20 02:01 97.4 F L 65 20 98 05/29/20 02:00 97.4 F L 72 20 139/74 98 05/28/20 21:27 98.0 F 78 18 142/79 95 05/28/20 15:40 98.2 F 60 20 150/89 05/28/20 12:36 97.9 F 62 20 136/73 99 05/28/20 08:33 97.9 F 62 20 126/61 96 Intake and Output 05/28/20 05/29/20 05/29/20 23:59 07:59 15:59 Intake Total 320 360 Balance 320 360 Intake: Oral 320 Intake, Free Water 360 Other: Total, Intake Amount 320 # Voids Void 1 2 - Exam Uterus: Present: firm, fundal height at umbilicus Extremities: Present: edema - Labs Labs: Abnormal lab results 05/28/20 Range/Units 14:15 Hgb 9.0 L (10.1-14.3) gm/dl Hct 26.7 L (30.3-42.9) %
[2020-05-29] MEDS: DOCUSATE SODIUM 100 MG CAP PO SCH (11:06)
--- NOTE | 2020-05-29 15:48 | Discharge Summary ---
Providers - Providers Date of Admission: 05/24/20 08:28 Date of discharge: 05/29/20 Attending physician: FLAKITA THOMPSON 05/24/20 10:30 Consult to Physician [CONS] Routine Comment: Consulting Provider: HANY REY Physician Instructions: Reason For Exam: induction of labor (35w4d) Primary care physician: FLAKITA THOMPSON Hospitalization Reason for admission: induction of labor Delivery: Episiotomy: none Laceration: none complications: none Discharge diagnosis: delivery [place] baby: male Condition at discharge: Good Disposition: DC-01 TO HOME OR SELFCARE Plan - Discharge Medications Prescriptions: Ferrous Sulfate [Feosol 325 MG tab] 325 mg PO BID #30 tablet Butalb/Acetamin/Caff 50-325-40 [Fioricet 50-325-40] 1 tab PO Q6HR PRN #30 tab PRN Reason: Headache Ibuprofen [Motrin] 800 mg PO Q8HR PRN #30 tablet PRN Reason: Pain , Severe (7-10) HYDROcodone/APAP 5-325 [[place] 5/325] 1 each PO Q6HR PRN #15 tablet PRN Reason: Pain - Provider Discharge Summary Activity: no sex for 6 weeks, no heavy lifting 4 weeks, no strenuous exercise Diet: routine Instructions: routine Additional instructions: [] Smoking cessation referral if applicable(refer to patient education folder for contact #) [] Refer to [facility] Booklet Call your doctor immediately for: * Fever > 100.5 * Heavy vaginal bleeding ( >1 pad per hour) * Severe persistent headache * Shortness of breath * Reddened, hot, painful area to leg or breast * Drainage or odor from incision. * Keep incision clean and dry at all times and follow doctor's instructions regarding bathing/showering - Follow up plan Follow up: FLAKITA THOMPSON MD [Primary Care Provider] - 7 Days HUSSAIN OHARA MD [Staff Physician] - 7 Days
[2020-05-29] MEDS ORDERED: FUROSEMIDE 40 MG TAB PO ONE (16:16)
[2020-05-29 21:44] VITALS: BP 130/76
[2020-05-30] MEDS ORDERED: FUROSEMIDE 40 MG TAB PO ONE (15:02)
== END 2020-05-29 21:45 | disposition home or self-care (01) | DRG 806 ==
LOC: TRG 17:01 → APU 17:05 → LD 18:52 → TRG 18:52 → OBSVTOIN 05-24 08:28 → OB 05-27 05:16
PROVIDERS: ADMIT Obstetrics & Gynecology; ATTEND Obstetrics & Gynecology
PROC: 3E0P7VZ Introduction of Hormone into Female Reproductive, Via Natural or Artificial Opening (ICD-10-PCS; principal; 2020-05-24)
PROC: 10H07YZ Insertion of Other Device into Products of Conception, Via Natural or Artificial Opening (ICD-10-PCS; 2020-05-24)
PROC: 3E0R3BZ Introduction of Anesthetic Agent into Spinal Canal, Percutaneous Approach (ICD-10-PCS; 2020-05-25)
PROC: 00HU33Z Insertion of Infusion Device into Spinal Canal, Percutaneous Approach (ICD-10-PCS; 2020-05-25)
PROC: 10E0XZZ Delivery of Products of Conception, External Approach (ICD-10-PCS; 2020-05-26)
PROC: 10907ZC Drainage of Amniotic Fluid, Therapeutic from Products of Conception, Via Natural or Artificial Opening (ICD-10-PCS; 2020-05-26)
PROC: 3E0234Z Introduction of Serum, Toxoid and Vaccine into Muscle, Percutaneous Approach (ICD-10-PCS; 2020-05-28)
DX: O14.14 Severe pre-eclampsia complicating childbirth (principal); O98.32 Other infections with a predominantly sexual mode of transmission complicating childbirth; Z37.0 Single live birth; O99.214 Obesity complicating childbirth; Z3A.35 35 weeks gestation of pregnancy; Z20.822 Contact with and (suspected) exposure to COVID-19; E66.01 Morbid (severe) obesity due to excess calories; Z71.3 Dietary counseling and surveillance; Z23 Encounter for immunization; A60.09 Herpesviral infection of other urogenital tract; O60.14X0 Preterm labor third trimester with preterm delivery third trimester, not applicable or unspecified
CPT/HCPCS: 36415; 70450; 81001; 82565; 82947; 83615; 83735; 84450; 84460; 84550; 85014; 85018; 85027; 86592; 86850; 86900; 86901; 90471; 90715; G0378; A6250; J0595; J2405; J2540; J2590; J3010; J3475; J7120; U0003